=== PATIENT | female | born 1930 | race Caucasian/White ===

== ENCOUNTER → 2016-11-14 | Emergency (ER) | payer MEDICARE, BC ==
[~2016-11-14] MED LIST: ATROPINE SULFATE INJ 1 MG/1 ML VIAL ONE; ATROPINE SULFATE INJ 1 MG/10 ML DISP.SYRIN IV ONE; CALCIUM GLUCONATE 1000 MG/10 ML INJ IV ONE; DEXTROSE 50%-WATER 25 GM/50 ML DISP.SYRIN IV ONE; GLUCAGON,HUMAN RECOMB 1 MG INJ IV PRN; GLUCAGON,HUMAN RECOMB 1 MG INJ ONE; INSULIN REG, HUMAN 100 UNIT/ML 3 ML VIAL (PYX) IV ONE; NORMAL SALINE 500 ML IV PRN
[2016-11-14 20:46] LABS: ABSOLUTE BASOPHILS # (AUTO) 0.1 10^3/uL (0.0-0.2); ABSOLUTE EOSINOPHILS # (AUTO) 0.2 10^3/uL (0.0-0.6); ABSOLUTE LYMPHOCYTES (AUTO) 1.6 10^3/uL (0.5-4.7); ABSOLUTE MONOCYTES (AUTO) 0.7 10^3/uL (0.1-1.4); ABSOLUTE NEUT (AUTO) 7.5 10^3/uL (1.7-8.2); BASOPHILS % (AUTO) 0.6 % (0-2); EOSINOPHILS % (AUTO) 2.2 % (0-6); HEMATOCRIT 30.4 % (36.0-47.0); HEMOGLOBIN 10.2 g/dL (12.0-15.5); HGB HCT DIFFERENCE 0.2; LYMPHOCYTES % (AUTO) 15.7 % (13-45); MEAN CORPUSCULAR HEMOGLOBIN 31.6 pg (27.0-33.4); MEAN CORPUSCULAR HGB CONC 33.4 g/dL (32.0-36.0); MEAN CORPUSCULAR VOLUME 95 fl (80-97); RED BLOOD COUNT 3.21 10^6/uL (3.72-5.28); RED CELL DISTRIBUTION WIDTH 15.3 % (11.5-14.0); SEGMENTED NEUTROPHILS % (AUTO) 74.5 % (42-78); WHITE BLOOD COUNT 10.1 10^3/uL (4.0-10.5)
[2016-11-14 21:02] LABS: ALANINE AMINOTRANSFERASE 34 U/L (9-52); ALBUMIN 3.9 g/dL (3.5-5.0); ALKALINE PHOSPHATASE 227 U/L (38-126); ANION GAP 19 (5-19); ASPARTATE AMINO TRANSFERASE 37 U/L (14-36); BILIRUBIN,DIRECT 0.7 mg/dL (0.0-0.4); BILIRUBIN,TOTAL 0.7 mg/dL (0.2-1.3); BLOOD UREA NITROGEN 104 mg/dL (7-20); CALCIUM 9.3 mg/dL (8.4-10.2); CARBON DIOXIDE 21 mmol/L (22-30); CHLORIDE 95 mmol/L (98-107); CREATINE KINASE 47 U/L (30-135); GLUCOSE 92 mg/dL (75-110)
[2016-11-14 21:08] LABS: CREATININE RESULT 7.21 mg/dL (0.52-1.25)
[2016-11-14 21:11] LABS: POTASSIUM 6.5 mmol/L (3.6-5.0)
[2016-11-14 21:14] LABS: CREATINE KINASE MB 2.2 ng/mL (<4.55); TROPONIN I 0.015 ng/mL
--- NOTE | 2016-11-14 21:25 | EKG REPORT ---
SEVERITY:- ABNORMAL ECG - JUNCTIONAL ESCAPE RHYTHM 31 BPM. NEED TO R/O HYPERKALEMIA. : Confirmed by: Jan Lyons MD 14-Nov-2016 21:24:45
--- NOTE | 2016-11-14 21:54 | ER Document Report ---
ED General - General Chief Complaint: General Weakness Stated Complaint: WEAKNESS Time seen by provider: 21:49 Mode of Arrival: Medic Information source: Patient, Emergency Med Personnel Notes: This is an 86-year-old female with a history of end-stage renal disease ( dialysis Mondays, Wednesdays, Fridays) and hypertension(on carvedilol and nifedipine) who was brought into the emergency room by EMS because of weakness and bradycardia. The patient lives alone and states she felt fine today. She was out earlier driving to [place]. She states that this evening she was sweeping in her kitchen and she felt very weak and dizzy and felt like she was given a faint. She lied down on the couch for a little bit and called EMS when she was profoundly weak. When EMS arrived, the patient had a heart rate in the 30s. On arrival to the emergency room, the patient's heart rate is 31. TRAVEL OUTSIDE OF THE [place] IN LAST 30 DAYS: No - HPI Onset: Just prior to arrival Onset/Duration: Sudden Quality of pain: Burning Severity: Mild Pain Level: 1 Associated symptoms: denies: Chills, Nonproductive cough, Productive cough, Fever, Shortness of breath Exacerbated by: Denies Relieved by: Denies Similar symptoms previously: No Recently seen / treated by doctor: Yes - Related Data Allergies/Adverse Reactions: benazepril [Benazepril] Allergy (Verified 07/25/15 08:19) cephalexin monohydrate [From Keflex] Allergy (Verified 07/25/15 08:19) ciprofloxacin [From Cipro] Allergy (Verified 07/25/15 08:19) ciprofloxacin HCl [From Cipro] Allergy (Verified 07/25/15 08:19) Home Medications: Current Home Medications Carvedilol [Coreg] 12.5 mg PO BID 11/14/16 [History] Losartan Potassium 50 mg PO DAILY MDD daily 11/14/16 [History] Trazodone HCl 100 mg PO QHS 11/14/16 [History] Past Medical History - General Information source: Patient - Social History Smoking Status: Never Smoker Cigarette use (# per day): No Chew tobacco use (# tins/day): No Frequency of alcohol use: None Drug Abuse: None Lives with: Alone Family History: Reviewed & Not Pertinent Patient has suicidal ideation: No Patient has homicidal ideation: No - Past Medical History Cardiac Medical History: Reports: Hx Congestive Heart Failure, Hx Hypertension Pulmonary Medical History: Reports: None EENT Medical History: Reports: None Neurological Medical History: Reports: None Endocrine Medical History: Reports: None Renal/ Medical History: Reports: Hx End Stage Renal Disease Malignancy Medical History: Reports: None GI Medical History: Reports: None Musculoskeltal Medical History: Reports Hx Arthritis Skin Medical History: Reports None Psychiatric Medical History: Reports: None Traumatic Medical History: Reports: None Infectious Medical History: Reports: None Past Surgical History: Reports: Hx Appendectomy, Hx Cholecystectomy, Hx Hysterectomy, Hx Orthopedic Surgery, Hx Urinary Tract Surgery, Hx Vascular Surgery - AV graft of L upper arm - Immunizations Hx Pneumococcal Vaccination: 08/22/14 Review of Systems - Review of Systems Constitutional: denies: Chills, Fever EENT: No symptoms reported Cardiovascular: See HPI Respiratory: denies: Cough, Short of breath, Wheezing Gastrointestinal: No symptoms reported Genitourinary: No symptoms reported Female Genitourinary: No symptoms reported Musculoskeletal: No symptoms reported Skin: No symptoms reported Hematologic/Lymphatic: No symptoms reported Neurological/Psychological: No symptoms reported Physical Exam - Vital signs Vitals: Resp 22 H 11/14/16 20:14 Notes: Physical exam: GENERAL: 86-year-old female, alert and oriented 3, appears very weak. She is bradycardic on monitor at a heart rate of 31. HEAD: Atraumatic, normocephalic. EYES: Pupils equal round and reactive to light, extraocular movements intact, sclera anicteric, conjunctiva are normal. ENT: TMs normal, nares patent, oropharynx clear without exudates. Moist mucous membranes. NECK: Normal range of motion, supple without lymphadenopathy or JVD. LUNGS: Breath sounds clear to auscultation bilaterally and equal. No wheezes rales or rhonchi. HEART: Bradycardia without murmurs, rubs or gallops. ABDOMEN: Soft, normoactive bowel sounds. No tenderness to palpation. No guarding, no rebound. No masses appreciated. EXTREMITIES: Left upper extremity shunt: Positive thrill. No erythema over the graft site. NEUROLOGICAL: Cranial nerves II through XII grossly intact. Normal speech, normal gait. PSYCH: Normal mood, normal affect. SKIN: Warm, Dry, normal turgor, no rashes or lesions noted. Course - Re-evaluation Re-evalutation: 11/14/16 21:53 The patient's initial EKG revealed a junctional escape rhythm with a ventricular rate of 31. IV access was established. Patient was given 0.5 mg of atropine. External pacer pads are in place (not started). IV calcium gluconate 1 g given IV glucagon 1 mg given D50 50 g IV given Regular Insulin 10 units IV given Patient's heart rate is currently 51-55. Plan will be to transfer the patient to [facility] (she has been there before that's where her renal doctors are). We do not have any nephrology consultation or capabilities for dialysis at this time. 11/14/16 23:22 Note: Called into the room because the patient was dropping her heart rate again. She is alert and oriented 3 and doesn't appear to be in any discomfort. Her heart rate at this time is sinus bradycardia in the 40s. 11/15/16 00:16 11/15/16 00:17 - Vital Signs Vital signs: Temp Pulse Resp BP Pulse Ox 97.1 F 12 106/40 L 100 11/14/16 23:29 11/14/16 23:50 11/14/16 23:51 11/14/16 23:51 - Laboratory Result Diagrams: 11/14/16 20:25 11/14/16 20:25 Laboratory results interpreted by me: 11/14/16 11/14/16 20:25 20:25 RBC 3.21 L Hgb 10.2 L Hct 30.4 L RDW 15.3 H Sodium 135.0 L Potassium 6.5 H* Chloride 95 L Carbon Dioxide 21 L BUN 104 H Creatinine 7.21 H Est GFR ( Amer) 7 L Est GFR (Non-Af Amer) 5 L Direct Bilirubin 0.7 H AST 37 H Alkaline Phosphatase 227 H - Diagnostic Test Radiology reviewed: Image reviewed, Reports reviewed - Chest x-ray shows no - EKG Interpretation by Me Rate: Bradycardia - EKG shows bradycardia with a ventricular rate of 31. The complexes are narrow suggesting a junctional escape rhythm. There is no acute ST-T wave changes. Critical Care Note - Critical Care Note Total time excluding time spent on procedures (mins): 90 Discharge - Discharge Clinical Impression: bradycardia, hyperkalemia Condition: Serious Disposition: [facility] Referrals: MARIE OCAMPO MD [Primary Care Provider] - Follow up as needed
[2016-11-15 00:10] VITALS: BP 106/40
[2016-11-15 00:14] LABS: THYROID STIMULATING HORMONE 6.13 uIU/mL (0.47-4.68)
== END | disposition short-term general hospital (02) ==
LOC: ER 19:59
DX: R00.1 Bradycardia, unspecified (principal); E87.5 Hyperkalemia; R53.1 Weakness; I12.0 Hypertensive chronic kidney disease with stage 5 chronic kidney disease or end stage renal disease; N18.6 End stage renal disease; Z99.2 Dependence on renal dialysis; Z79.899 Other long term (current) drug therapy; Z88.8 Allergy status to other drugs, medicaments and biological substances; Z88.1 Allergy status to other antibiotic agents
CPT/HCPCS: 93005; 96376; 99291; 99292; 96374; 96375; 36415; 84439; 82553; 82962; 82550; 84443; 85025; 80053; 84484; 71010; 93010; J0461; J0610; J3490; J1610; A9270; J1815

== ENCOUNTER 2017-09-10 17:58 | Emergency (ER) | payer MEDICARE, BC ==
[2017-09-10] MEDS ORDERED: OXYCODONE-ACETAMINOPHEN 5-325 MG TABLET PO ONE ×2 (20:01→23:48)
--- NOTE | 2017-09-10 20:09 | ER Document Report ---
ED Extremity Problem, Lower - General Mode of Arrival: Wheelchair Information source: Patient, Relative - 2 daughters in law TRAVEL OUTSIDE OF THE [place] IN LAST 30 DAYS: No <FILIPE CASON - Last Filed: 09/10/17 20:54> <CULLEN GALLOWAY - Last Filed: 09/10/17 22:50> - General Chief Complaint: Fall Stated Complaint: ANKLE PAIN Time Seen by Provider: 09/10/17 19:50 Notes: 87-year-old female who lives alone fell yesterday morning trying to use her walker to get to the bathroom. She injured her left ankle and her left knee due to a previous fall since she got home. Somehow they got her to dialysis and had to be transported home from dialysis at [facility]. [facility] at [facility] for pneumonia and was discharged from [facility] after 6 days. She has been falling ever since she got home because of weakness and debilitation. No fever. No vomiting or diarrhea. She is wearing a diaper at this time. Her 2 [id number] are with her and they are trying to find a assisted placement for her. She denies chest pain, shortness of breath, abdominal pain. She gets dialysis Tuesday and Tuesday. (FILIPE CASON) - Related Data Allergies/Adverse Reactions: benazepril [Benazepril] Allergy (Verified 07/25/15 08:19) cephalexin monohydrate [From Keflex] Allergy (Verified 07/25/15 08:19) ciprofloxacin [From Cipro] Allergy (Verified 07/25/15 08:19) ciprofloxacin HCl [From Cipro] Allergy (Verified 07/25/15 08:19) Past Medical History - General Information source: Patient, Relative - [id number] - Social History Smoking Status: Never Smoker Frequency of alcohol use: None Drug Abuse: None Lives with: Alone Family History: Reviewed & Not Pertinent - Past Medical History Cardiac Medical History: Reports: Hx Congestive Heart Failure, Hx Hypertension Renal/ Medical History: Reports: Hx End Stage Renal Disease Musculoskeltal Medical History: Reports Hx Arthritis Past Surgical History: Reports: Hx Appendectomy, Hx Cholecystectomy, Hx Hysterectomy, Hx Orthopedic Surgery, Hx Urinary Tract Surgery, Hx Vascular Surgery - AV graft of L upper arm - Immunizations Hx Pneumococcal Vaccination: 08/22/14 <KAMLAFILIPE - Last Filed: 09/10/17 20:54> Review of Systems - Review of Systems Constitutional: No symptoms reported EENT: No symptoms reported Cardiovascular: No symptoms reported Respiratory: No symptoms reported Gastrointestinal: No symptoms reported Genitourinary: No symptoms reported Female Genitourinary: No symptoms reported Musculoskeletal: See HPI Skin: No symptoms reported Hematologic/Lymphatic: No symptoms reported Neurological/Psychological: No symptoms reported <DERICKLIVANFILIPE - Last Filed: 09/10/17 20:54> Physical Exam - Vital signs Interpretation: Normal - General General appearance: Appears well, Alert - HEENT Head: Normocephalic, Atraumatic Eyes: Normal Conjunctiva: Other - mild yellow mucoid medial canthus discharge both eyes Pupils: PERRL Pharynx: Normal Neck: Supple. No: Lymphadenopathy - Respiratory Respiratory status: No respiratory distress Chest status: Nontender Breath sounds: Normal Chest palpation: Normal - Cardiovascular Rhythm: Regular Heart sounds: Normal auscultation Murmur: No - Abdominal Inspection: Normal Distension: No distension Bowel sounds: Normal Tenderness: Nontender. No: Tender Organomegaly: No organomegaly - Back Back: Normal, Nontender - Extremities General upper extremity: Normal inspection, Nontender, Normal color, Normal ROM , Normal temperature General lower extremity: Normal inspection, Nontender, Normal color, Normal ROM , Normal temperature, Normal weight bearing. No: Cristina's sign Knee: Tender - bruising medial left knee Ankle: Tender - medial and lateral malleolus, Edema, Limited ROM, Unable to bear weight. No: Deformity, Instability - Neurological Neuro grossly intact: Yes Cognition: Normal Orientation: AAOx4 Minda Coma Scale Eye Opening: Spontaneous [place] Coma Scale Verbal: Oriented Minda Coma Scale Motor: Obeys Commands [place] Coma Scale Total: 15 Speech: Normal Motor strength normal: LUE, RUE, LLE, RLE Sensory: Normal - Psychological Associated symptoms: Normal affect, Normal mood - Skin Skin Temperature: Warm Skin Moisture: Dry Skin Color: Normal Skin irregularity: other - skin tear lower right lateral leg <DERICKLIVANFILIPE - Last Filed: 09/10/17 20:54> - Vital signs Vitals: Temp Pulse Resp BP Pulse Ox 97.5 F 100 18 105/60 97 09/10/17 18:14 09/10/17 18:14 01/20/18 18:14 09/10/17 18:14 09/10/17 18:14 Course - Transfer of Care Care transferred to following provider: cullen galloway at the bedside <FILIPE CASON - Last Filed: 09/10/17 20:54> - Laboratory Result Diagrams: 09/10/17 21:57 09/10/17 21:57 <CULLEN GALLOWAY - Last Filed: 09/10/17 22:50> - Re-evaluation Re-evalutation: 09/10/17 22:47 Patient is nontoxic appearing with stable vitals. The patient sustained a distal fibular fracture after falling at home yesterday. She has a normal neurovascular exam. Patient is noted to have some increasing weakness and difficulty getting around at home. She has dialysis Tuesday and has home health comes out Tuesdays and . There is no medical reason to admit the patient at this current time. This was discussed with the family who agrees with the plan. Patient will be placed in a posterior splint. Medical transport will transfer her back to her home. I informed the family they should talk with her home health to see if they can increase her home health to more than Tuesdays and to help the patient while she is at home. She is instructed to follow-up with Orth O at the next available appointment for reevaluation. The patient has tramadol which she can take for pain at home already. Instructed her to follow-up sooner for increasing pain, fever, weakness, numbness, tingling, any further concerns. The patient's emergency department workup and current diagnosis were explained to the patient and or family. Follow-up instructions were provided. Medications if prescribed were discussed. Instructions for when to return to the emergency department including specific worrisome symptoms were discussed with the patient and/or family. (CULLEN GALLOWAY) - Vital Signs Vital signs: Temp Pulse Resp BP Pulse Ox 97.5 F 100 18 105/60 97 09/10/17 18:14 09/10/17 18:14 09/10/17 18:14 09/10/17 18:14 09/10/17 18:14 - Laboratory Laboratory results interpreted by me: 09/10/17 09/10/17 09/10/17 21:35 21:57 21:57 RBC 2.83 L Hgb 9.1 L Hct 28.2 L MCV 100 H RDW 19.4 H Monocytes % 16.6 H Sodium 135.0 L Creatinine 4.22 H Est GFR ( Amer) 12 L Est GFR (Non-Af Amer) 10 L Glucose 115 H Alkaline Phosphatase 146 H Total Protein 6.1 L Albumin 3.4 L Urine Protein 100 H Urine Blood SMALL H Ur Leukocyte Esterase TRACE H Procedures - Immobilization Left leg Pre-Proc Neuro Vasc Exam: Normal Immobilizer type: Posterior ankle Performed by: RN Post-Proc Neuro Vasc Exam: Normal Alignment checked and good: Yes <CULLEN GALLOWAY - Last Filed: 09/10/17 22:50> Discharge <FILIPE CASON - Last Filed: 09/10/17 20:54> <CULLEN GALLOWAY - Last Filed: 09/10/17 22:50> - Discharge Clinical Impression: Weakness Fracture of distal fibula Qualifiers: Encounter type: initial encounter Fracture type: closed Fracture morphology: unspecified fracture morphology Laterality: left Qualified Code(s): S82.832A - Other fracture of upper and lower end of left fibula, initial encounter for closed fracture Condition: Stable Disposition: HOME, SELF-CARE Instructions: Fracture of Distal Fibula ([facility]), Weakness ([facility]) Additional Instructions: Take her tramadol as as needed for pain. Wear splint until follow-up with orthopedics. Rest, ice, elevate her ankle. Follow-up with her family doctor the next available appointment. Discuss the possibility of her home health coming out more frequently for assistance. Follow-up sooner for increasing pain , fever, numbness, tingling, weakness, any further concerns. Referrals: MARIE OCAMPO MD [Primary Care Provider] - Follow up as needed CHELSY EVANS DO [ACTIVE STAFF] - Follow up as needed
--- NOTE | 2017-09-10 21:09 | RADIOLOGY REPORT (SQ) ---
EXAM DESCRIPTION: ANKLE LEFT COMPLETE COMPLETED DATE/TIME: 09/10/2017 8:33 pm REASON FOR STUDY: pain COMPARISON: None. NUMBER OF VIEWS: Three views. TECHNIQUE: AP, lateral, and oblique radiographic images acquired of the left ankle. LIMITATIONS: None. FINDINGS: MINERALIZATION: Osteopenia. BONES: A nondisplaced oblique fracture is seen through the distal fibula. The ankle mortise is maint ained. Postsurgical changes of the great toe proximal phalanx are noted. JOINTS: No effusions. 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 N o soft tissue swelling. No foreign body. OTHER: No other significant finding. IMPRESSION: Nondisplaced oblique fracture through the distal fibula. TECHNICAL DOCUMENTATION: JOB ID: [id number] [employer]- All Rights Reserved
[2017-09-10 21:49] LABS: APPEARANCE,URINE SLIGHTLY-CLOUDY; BILIRUBIN,URINE NEGATIVE (NEGATIVE); COLOR,URINE AMBER; GLUCOSE, URINE NEGATIVE (NEGATIVE); KETONES,URINE NEGATIVE (NEGATIVE); LEUKOCYTE ESTERASE,URINE TRACE (NEGATIVE); NITRITE,URINE NEGATIVE (NEGATIVE); PROTEIN,URINE 100 mg/dL (NEGATIVE); URINE SPECIFIC GRAVITY 1.015; UROBILINOGEN,URINE NEGATIVE mg/dL (<2.0)
--- NOTE | 2017-09-10 21:58 | RADIOLOGY REPORT (SQ) ---
EXAM DESCRIPTION: CHEST SINGLE VIEW COMPLETED DATE/TIME: 09/10/2017 9:20 pm REASON FOR STUDY: injury COMPARISON: 11/14/2016 EXAM PARAMETERS: NUMBER OF VIEWS: One view. TECHNIQUE: Single frontal radiographic view of the chest acquired. RADIATION DOSE: NA LIMITATIONS: None. FINDINGS: LUNGS AND PLEURA: No opacities, masses or pneumothorax. No pleural effusion. MEDIASTINUM AND HILAR STRUCTURES: No masses. Contour normal. HEART AND VASCULAR STRUCTURES: Mild cardiomegaly. Normal vasculature. BONES: No acute findings. HARDWARE: Left axillary vascular stent. Right anterior chest wall dual lead cardiac pacer. OTHER: No other significant finding. IMPRESSION: NO ACUTE RADIOGRAPHIC FINDING IN THE CHEST. TECHNICAL DOCUMENTATION: JOB ID: [id number] [employer]- All Rights Reserved
--- NOTE | 2017-09-10 21:59 | RADIOLOGY REPORT (SQ) ---
EXAM DESCRIPTION: KNEE LEFT 4 VIEW COMPLETED DATE/TIME: 09/10/2017 9:20 pm REASON FOR STUDY: injury COMPARISON: None. NUMBER OF VIEWS: Four views. TECHNIQUE: AP, lateral, and both oblique radiographic images acquired of the left knee. LIMITATIONS: None. FINDINGS: MINERALIZATION: Osteopenia. BONES: Status post total knee arthroplasty without evidence of hardware fracture, perihardware lucenc y, or migration. JOINT: No effusion. SOFT TISSUES: No soft tissue swelling. No radio-opaque foreign body. OTHER: No other significant finding. IMPRESSION: Status post total knee arthroplasty without evidence of hardware complication. No evide nce of acute osseous injury. TECHNICAL DOCUMENTATION: JOB ID: [id number] [employer]- All Rights Reserved
[2017-09-10 22:06] LABS: ABSOLUTE BASOPHILS # (AUTO) 0.1 10^3/uL (0.0-0.2); ABSOLUTE EOSINOPHILS # (AUTO) 0.1 10^3/uL (0.0-0.6); ABSOLUTE LYMPHOCYTES (AUTO) 1.5 10^3/uL (0.5-4.7); ABSOLUTE MONOCYTES (AUTO) 1.3 10^3/uL (0.1-1.4); ABSOLUTE NEUT (AUTO) 4.8 10^3/uL (1.7-8.2); BASOPHILS % (AUTO) 0.8 % (0-2); HEMATOCRIT 28.2 % (36.0-47.0); HEMOGLOBIN 9.1 g/dL (12.0-15.5); LYMPHOCYTES % (AUTO) 19.9 % (13-45); MEAN CORPUSCULAR HEMOGLOBIN 32.1 pg (27.0-33.4); MEAN CORPUSCULAR HGB CONC 32.2 g/dL (32.0-36.0); MEAN CORPUSCULAR VOLUME 100 fl (80-97); MONOCYTES % (AUTO) 16.6 % (3-13); PLATELET COUNT 177 10^3/uL (150-450); RED BLOOD COUNT 2.83 10^6/uL (3.72-5.28); RED CELL DISTRIBUTION WIDTH 19.4 % (11.5-14.0); SEGMENTED NEUTROPHILS % (AUTO) 61.7 % (42-78); TOTAL CELLS COUNTED % (AUTO) 100 %; WHITE BLOOD COUNT 7.8 10^3/uL (4.0-10.5)
[2017-09-10 22:22] LABS: ALANINE AMINOTRANSFERASE 34 U/L (9-52); ALBUMIN 3.4 g/dL (3.5-5.0); ALKALINE PHOSPHATASE 146 U/L (38-126); ANION GAP 9 (5-19); ASPARTATE AMINO TRANSFERASE 22 U/L (14-36); BILIRUBIN,DIRECT 0.4 mg/dL (0.0-0.4); BILIRUBIN,TOTAL 0.6 mg/dL (0.2-1.3); BLOOD UREA NITROGEN 16 mg/dL (7-20); CALCIUM 9.4 mg/dL (8.4-10.2); CARBON DIOXIDE 27 mmol/L (22-30); CHLORIDE 99 mmol/L (98-107); GLUCOSE 115 mg/dL (75-110); MAGNESIUM 1.7 mg/dL (1.6-2.3); POTASSIUM 4.8 mmol/L (3.6-5.0); TOTAL PROTEIN 6.1 g/dL (6.3-8.2)
[2017-09-11 02:57] VITALS: BP 105/66
== END 2017-09-11 02:54 | disposition home or self-care (01) ==
LOC: ER 17:58
PROC: 2W3RX1Z Immobilization of Left Lower Leg using Splint (ICD-10-PCS; principal; 2017-09-10)
DX: S82.832A Other fracture of upper and lower end of left fibula, initial encounter for closed fracture (principal); R53.1 Weakness; W18.30XA Fall on same level, unspecified, initial encounter; Y92.009 Unspecified place in unspecified non-institutional (private) residence as the place of occurrence of the external cause; I11.0 Hypertensive heart disease with heart failure; I50.9 Heart failure, unspecified; I13.11 Hypertensive heart and chronic kidney disease without heart failure, with stage 5 chronic kidney disease, or end stage renal disease; N18.6 End stage renal disease; Z99.2 Dependence on renal dialysis; Z88.3 Allergy status to other anti-infective agents; Z90.710 Acquired absence of both cervix and uterus; Z90.49 Acquired absence of other specified parts of digestive tract
CPT/HCPCS: 99284; 36415; 87086; 83735; 85025; 80053; 81001; 83880; 73610; 71045; 73562; 29515; A9270

== ENCOUNTER 2017-09-14 10:08 | Emergency (ER) | payer MEDICARE, BC ==
--- NOTE | 2017-09-14 12:02 | ER Document Report ---
ED Medical Screen (RME) - General Chief Complaint: Weakness Stated Complaint: WEAKNESS LEG PAIN Time Seen by Provider: 09/14/17 12:01 Notes: Patient is a Tuesday dialysis patient. She recently had pneumonia and was in an rehab facility. She was discharged from the rehab facility and felt weak and had a fall on Tuesday. At that time she was seen here in the emergency department and diagnosed with a broken fibula. Family brings the patient back in today stating that she is very weak and they cannot lift her or help her ambulate. Patient was supposed to dialyze today but did not make her appointment. Family states that the patient's chief contract officer who is in [place], Dr. Recio, told the family to bring the patient here for admission. TRAVEL OUTSIDE OF THE [place] IN LAST 30 DAYS: No - Related Data Allergies/Adverse Reactions: benazepril [Benazepril] Allergy (Verified 09/14/17 10:21) cephalexin monohydrate [From Keflex] Allergy (Verified 09/14/17 10:21) ciprofloxacin [From Cipro] Allergy (Verified 09/14/17 10:21) ciprofloxacin HCl [From Cipro] Allergy (Verified 09/14/17 10:21) Past Medical History - Social History Frequency of alcohol use: None Drug Abuse: None - Past Medical History Cardiac Medical History: Reports: Hx Congestive Heart Failure, Hx Hypertension Renal/ Medical History: Reports: Hx End Stage Renal Disease. Denies: Hx Peritoneal Dialysis Musculoskeltal Medical History: Reports Hx Arthritis Past Surgical History: Reports: Hx Appendectomy, Hx Cardiac Surgery - pacemaker , Hx Cholecystectomy, Hx Hysterectomy, Hx Orthopedic Surgery, Hx Urinary Tract Surgery, Hx Vascular Surgery - AV graft of L upper arm Physical Exam - Vital signs Vitals: Pulse Resp BP Pulse Ox 84 18 120/45 L 100 09/14/17 10:21 09/14/17 10:09/14/17 10:21 09/14/17 10:21 Course - Vital Signs Vital signs: Temp Pulse Resp BP Pulse Ox 84 18 120/45 L 100 09/14/17 10:21 09/14/17 10:21 09/14/17 10:09/14/17 10:21
[2017-09-14 14:14] LABS: ABSOLUTE EOSINOPHILS # (AUTO) 0.1 10^3/uL (0.0-0.6); ABSOLUTE MONOCYTES (AUTO) 0.5 10^3/uL (0.1-1.4); ABSOLUTE NEUT (AUTO) 4.4 10^3/uL (1.7-8.2); BASOPHILS % (AUTO) 0.6 % (0-2); HEMATOCRIT 30.7 % (36.0-47.0); HEMOGLOBIN 9.8 g/dL (12.0-15.5); LYMPHOCYTES % (AUTO) 17.1 % (13-45); MEAN CORPUSCULAR HEMOGLOBIN 31.3 pg (27.0-33.4); MEAN CORPUSCULAR VOLUME 98 fl (80-97); MONOCYTES % (AUTO) 7.7 % (3-13); PLATELET COUNT 206 10^3/uL (150-450); RED BLOOD COUNT 3.14 10^6/uL (3.72-5.28); RED CELL DISTRIBUTION WIDTH 19.2 % (11.5-14.0); SEGMENTED NEUTROPHILS % (AUTO) 72.6 % (42-78); TOTAL CELLS COUNTED % (AUTO) 100 %; WHITE BLOOD COUNT 6.1 10^3/uL (4.0-10.5)
--- NOTE | 2017-09-14 14:31 | ER Document Report ---
ED General - General Chief Complaint: Weakness Stated Complaint: WEAKNESS LEG PAIN Time Seen by Provider: 09/14/17 12:01 Notes: 87-year-old female patient emergency department at request of family members for excessive weakness. Missed dialysis today. Was sent here by primary care doctor for possible admission and dialysis. Apparently patient was sick prior to with pneumonia. Was discharged to a senior living facility. Got weak and fell and broke her ankle. Was admitted to the hospital. Was discharged back home. Family member state that she is too weak to make dialysis. Family doctor stated to take her to the ER where she needed to be admitted to the hospital so then she can be placed in a nursing facility. Patient denies any pain at this time other than her left ankle. Feels weak. Denies any fever, chills, sweats. Apparently there is one of the family member at home with influenza on Tamiflu. She has had her flu shot this year. [employer] voice dictation system was used in the transcribing of this medical document. There may be contextual errors in the photographic process screen maker which are not actual representations of the patient's history of present illness, physical exam or medical treatment and decision making plans. TRAVEL OUTSIDE OF THE [place] IN LAST 30 DAYS: No - Related Data Allergies/Adverse Reactions: benazepril [Benazepril] Allergy (Verified 09/14/17 10:21) cephalexin monohydrate [From Keflex] Allergy (Verified 09/14/17 10:21) ciprofloxacin [From Cipro] Allergy (Verified 09/14/17 10:21) ciprofloxacin HCl [From Cipro] Allergy (Verified 09/14/17 10:21) Past Medical History - General Information source: Patient, Relative - Social History Smoking Status: Never Smoker Cigarette use (# per day): No Frequency of alcohol use: None Drug Abuse: None Lives with: Family Family History: Reviewed & Not Pertinent Patient has suicidal ideation: No Patient has homicidal ideation: No - Past Medical History Cardiac Medical History: Reports: Hx Congestive Heart Failure, Hx Hypertension Renal/ Medical History: Reports: Hx End Stage Renal Disease. Denies: Hx Peritoneal Dialysis Musculoskeltal Medical History: Reports Hx Arthritis Past Surgical History: Reports: Hx Appendectomy, Hx Cardiac Surgery - pacemaker , Hx Cholecystectomy, Hx Hysterectomy, Hx Orthopedic Surgery, Hx Urinary Tract Surgery, Hx Vascular Surgery - AV graft of L upper arm - Immunizations Hx Pneumococcal Vaccination: 08/22/14 Review of Systems - Review of Systems Constitutional: Malaise, Weakness. denies: Chills, Diaphoresis, Fever EENT: denies: Blurred vision, Double vision, Throat pain, Difficulty swallowing Cardiovascular: Lightheaded, Edema. denies: Palpitations, Heart racing, Orthopnea, Dyspnea, Syncope, Dizziness Gastrointestinal: denies: Abdominal pain, Diarrhea, Nausea, Vomiting Genitourinary: denies: Burning, Dysuria, Discharge, Flank pain Musculoskeletal: Ankle swelling - Left ankle pain status post fracture, Other. denies: Back pain, Joint pain, Muscle pain Hematologic/Lymphatic: denies: Anemia, Blood clots, Easy bleeding, Easy bruising Neurological/Psychological: denies: Confusion, Dementia, Depression, Anxiety Physical Exam - Vital signs Vitals: Pulse Resp BP Pulse Ox 84 18 120/45 L 100 09/14/17 10:21 09/14/17 10:21 09/14/17 10:21 09/14/17 10:21 Interpretation: Normal - General General appearance: Appears well, Alert - HEENT Head: Normocephalic, Atraumatic Eyes: Normal Pupils: PERRL - Respiratory Respiratory status: No respiratory distress Chest status: Nontender Breath sounds: Normal Chest palpation: Normal - Cardiovascular Rhythm: Regular Heart sounds: Normal auscultation Murmur: No - Abdominal Inspection: Normal Distension: No distension Bowel sounds: Normal Tenderness: Nontender Organomegaly: No organomegaly - Back Back: Normal, Nontender - Extremities General upper extremity: Normal inspection, Nontender, Normal color, Normal ROM , Normal temperature General lower extremity: Normal inspection, Nontender, Edema, Normal color, Normal ROM, Normal temperature, Normal weight bearing, Other - There is bilateral lower extremity 3+ pitting edema with bruising and swelling noted to the left ankle with tenderness to palpation of the lateral malleolus. There is a small abrasion on the distal tib-fib area proximal to the right ankle but no signs of cellulitis.. No: Cristina's sign - Neurological Neuro grossly intact: Yes Cognition: Normal Orientation: AAOx4 Byron Coma Scale Eye Opening: Spontaneous Minda Coma Scale Verbal: Oriented Byron Coma Scale Motor: Obeys Commands Minda Coma Scale Total: 15 Speech: Normal Motor strength normal: LUE, RUE, LLE, RLE Sensory: Normal - Psychological Associated symptoms: Normal affect, Normal mood - Skin Skin Temperature: Warm Skin Moisture: Dry Skin Color: Normal Course - Re-evaluation Re-evalutation: 09/14/17 14:59 At this time patient has a potassium of 5.1 which is not extremely high. There are no beds available for dialysis at this facility. Patient's education finance processor is not at this hospital. At this time I can entertain transferring the patient however it may be quicker and better if the patient gets the long-term placement done as an outpatient with the help from primary care doctor. 09/14/17 16:39 Laboratory 09/14/17 09/14/17 09/14/17 13:59 13:59 13:59 WBC 6.1 RBC 3.14 L Hgb 9.8 L Hct 30.7 L MCV 98 H MCH 31.3 MCHC 32.0 RDW 19.2 H Plt Count 206 Seg Neutrophils % 72.6 Lymphocytes % 17.1 Monocytes % 7.7 Eosinophils % 2.0 Basophils % 0.6 Absolute Neutrophils 4.4 Absolute Lymphocytes 1.0 Absolute Monocytes 0.5 Absolute Eosinophils 0.1 Absolute Basophils 0.0 Sodium 136.9 L Potassium 5.1 H Chloride 98 Carbon Dioxide 30 Anion Gap 9 BUN 24 H Creatinine 4.82 H Est GFR ( Amer) 10 L Est GFR (Non-Af Amer) 9 L Glucose 92 Calcium 9.9 Total Bilirubin 0.5 Direct Bilirubin 0.5 H Neonat Total Bilirubin Not Reportable Neonat Direct Bilirubin Not Reportable Neonat Indirect Bili Not Reportable AST 32 ALT 49 Alkaline Phosphatase 169 H Troponin I 0.017 Total Protein 6.4 Albumin 3.6 Urine Color Urine Appearance Urine pH Ur Specific Halsey Urine Protein Urine Glucose (UA) Urine Ketones Urine Blood Urine Nitrite Urine Bilirubin Urine Urobilinogen Ur Leukocyte Esterase Urine WBC (Auto) Urine RBC (Auto) U Hyaline Cast (Auto) Urine Bacteria (Auto) Squamous Epi Cells Auto Urine Ascorbic Acid 09/14/17 14:43 WBC RBC Hgb Hct MCV MCH MCHC RDW Plt Count Seg Neutrophils % Lymphocytes % Monocytes % Eosinophils % Basophils % Absolute Neutrophils Absolute Lymphocytes Absolute Monocytes Absolute Eosinophils Absolute Basophils Sodium Potassium Chloride Carbon Dioxide Anion Gap BUN Creatinine Est GFR ( Amer) Est GFR (Non-Af Amer) Glucose Calcium Total Bilirubin Direct Bilirubin Neonat Total Bilirubin Neonat Direct Bilirubin Neonat Indirect Bili AST ALT Alkaline Phosphatase Troponin I Total Protein Albumin Urine Color YELLOW Urine Appearance SLIGHTLY-CLOUDY Urine pH 5.0 Ur Specific Halsey 1.016 Urine Protein 100 H Urine Glucose (UA) NEGATIVE Urine Ketones NEGATIVE Urine Blood NEGATIVE Urine Nitrite NEGATIVE Urine Bilirubin NEGATIVE Urine Urobilinogen NEGATIVE Ur Leukocyte Esterase NEGATIVE Urine WBC (Auto) 1 Urine RBC (Auto) 1 U Hyaline Cast (Auto) 1 Urine Bacteria (Auto) TRACE Squamous Epi Cells Auto <1 Urine Ascorbic Acid NEGATIVE Chest X-Ray 09/14/17 14:30 IMPRESSION: Borderline cardiomegaly. No bed available at this facility for dialysis. Patient's education finance processor is in [place]. Will attempt to transfer there at this time. Of note, patient is hypotensive. Giving an IV fluid bolus at this time due to the fact that her blood pressures 88/60. 09/14/17 17:54 No bed available here. Patient accepted by Dr. Benjamin at [facility] in [place]. Awaiting transport at this time. - Vital Signs Vital signs: Temp Pulse Resp BP Pulse Ox 84 13 110/46 L 97 09/14/17 10:21 09/14/17 15:01 09/14/17 15:01 09/14/17 15:00 - Laboratory Result Diagrams: 09/14/17 13:59 09/14/17 13:59 Laboratory results interpreted by me: 09/14/17 09/14/17 09/14/17 13:59 13:59 14:43 RBC 3.14 L Hgb 9.8 L Hct 30.7 L MCV 98 H RDW 19.2 H Sodium 136.9 L Potassium 5.1 H BUN 24 H Creatinine 4.82 H Est GFR ( Amer) 10 L Est GFR (Non-Af Amer) 9 L Direct Bilirubin 0.5 H Alkaline Phosphatase 169 H Urine Protein 100 H - EKG Interpretation by Ne EKG shows normal: Intervals, QRS Complexes, ST-T Waves - Paced ventricular rhythm Discharge - Discharge Clinical Impression: Hypotension Qualifiers: Hypotension type: unspecified hypotension type Qualified Code(s): I95.9 - Hypotension, unspecified Renal failure (ARF), acute on chronic Qualifiers: Acute renal failure type: unspecified Chronic kidney disease stage: on chronic dialysis Qualified Code(s): N17.9 - Acute kidney failure, unspecified; N18.9 - Chronic kidney disease, unspecified; N18.9 - Chronic kidney disease, unspecified ; Z99.2 - Dependence on renal dialysis; Z99.2 - Dependence on renal dialysis; Z99.2 - Dependence on renal dialysis; Z99.2 - Dependence on renal dialysis Disposition: [facility] Admitting Provider: Cassidy Referrals: MARIE OCAMPO MD [Primary Care Provider] - Follow up as needed
[2017-09-14 14:33] LABS: ALANINE AMINOTRANSFERASE 49 U/L (9-52); ALBUMIN 3.6 g/dL (3.5-5.0); ALKALINE PHOSPHATASE 169 U/L (38-126); ANION GAP 9 (5-19); ASPARTATE AMINO TRANSFERASE 32 U/L (14-36); BILIRUBIN,DIRECT 0.5 mg/dL (0.0-0.4); BILIRUBIN,TOTAL 0.5 mg/dL (0.2-1.3); BLOOD UREA NITROGEN 24 mg/dL (7-20); CALCIUM 9.9 mg/dL (8.4-10.2); CARBON DIOXIDE 30 mmol/L (22-30); CHLORIDE 98 mmol/L (98-107); GLUCOSE 92 mg/dL (75-110); POTASSIUM 5.1 mmol/L (3.6-5.0); SODIUM 136.9 mmol/L (137-145); TOTAL PROTEIN 6.4 g/dL (6.3-8.2)
[2017-09-14 14:57] LABS: APPEARANCE,URINE SLIGHTLY-CLOUDY; BILIRUBIN,URINE NEGATIVE (NEGATIVE); GLUCOSE, URINE NEGATIVE (NEGATIVE); KETONES,URINE NEGATIVE (NEGATIVE); LEUKOCYTE ESTERASE,URINE NEGATIVE (NEGATIVE); NITRITE,URINE NEGATIVE (NEGATIVE); PROTEIN,URINE 100 mg/dL (NEGATIVE); URINE SPECIFIC GRAVITY 1.016; UROBILINOGEN,URINE NEGATIVE mg/dL (<2.0)
[2017-09-14 14:58] LABS: COLOR,URINE YELLOW
--- NOTE | 2017-09-14 15:44 | RADIOLOGY REPORT (SQ) ---
EXAM DESCRIPTION: CHEST SINGLE VIEW COMPLETED DATE/TIME: 09/14/2017 3:16 pm REASON FOR STUDY: weakness, recent PNA COMPARISON: 09/10/2017 EXAM PARAMETERS: NUMBER OF VIEWS: One view. TECHNIQUE: Single frontal radiographic view of the chest acquired. RADIATION DOSE: NA LIMITATIONS: None. FINDINGS: LUNGS AND PLEURA: No infiltrate, masses or pneumothorax. No pleural effusion. MEDIASTINUM AND HILAR STRUCTURES: No masses. Contour normal. HEART AND VASCULAR STRUCTURES: The heart is unchanged in size with atherosclerotic uncoiling thoracic aorta. Subclavian vascular stent on the left. BONES: No acute findings. HARDWARE: Pacer leads in place. OTHER: No other significant finding. IMPRESSION: Borderline cardiomegaly. TECHNICAL DOCUMENTATION: JOB ID: [id number] [id number] [employer]- All Rights Reserved
[2017-09-14] MEDS ORDERED: ACETAMINOPHEN 325 MG TABLET PO ONE (16:24)
[2017-09-14] MEDS ORDERED: NORMAL SALINE 500 ML IV ONE (16:34)
[2017-09-14] MEDS ORDERED: TRAMADOL HCL 50 MG TABLET PO ONE (17:52)
[2017-09-14 20:12] VITALS: BP 93/45
--- NOTE | 2017-09-15 11:58 | EKG REPORT ---
SEVERITY:- ABNORMAL ECG - DUAL-PACEMAKER W/ A-NONCAPT DUE TO AFIB/FLUT NONSPECIFIC T ABNORMALITIES, DIFFUSE LEADS A FIB : Confirmed by: Rodney Hartley 15-Sep-2017 11:58:12
== END 2017-09-14 20:30 | disposition short-term general hospital (02) ==
LOC: ER 10:08
DX: I12.0 Hypertensive chronic kidney disease with stage 5 chronic kidney disease or end stage renal disease (principal); N18.6 End stage renal disease; N17.9 Acute kidney failure, unspecified; Z99.2 Dependence on renal dialysis; Z91.15 Patient's noncompliance with renal dialysis; I95.9 Hypotension, unspecified; R53.1 Weakness; R53.81 Other malaise; R42 Dizziness and giddiness; Z87.01 Personal history of pneumonia (recurrent); Z20.828 Contact with and (suspected) exposure to other viral communicable diseases; Z88.8 Allergy status to other drugs, medicaments and biological substances; Z88.1 Allergy status to other antibiotic agents
CPT/HCPCS: 93005; 99285; 96360; 51701; 36415; 87086; 85025; 87088; 80053; 81001; 84484; 71045; 93010; A9270 ×2; J7040

== ENCOUNTER 2017-10-13 23:42 | Emergency (ER) | payer MEDICARE, BC ==
--- NOTE | 2017-10-14 00:12 | ER Document Report ---
ED General - General Stated Complaint: POSSIBLE ACCIDENTAL OVERDOSE Time Seen by Provider: 10/13/17 23:53 Notes: Patient is an 87-year-old female that comes by EMS from [facility] for possible overdose. EMS reports that they were both found "all over the floor and patient's room, they state that patient stated she only took 0.5 mg of Ativan to "help her rest", per medics state and there appeared to be old trazodone and diazepam pills over the floor which patient must have brought with her when she was admitted 1 week ago. Patient states that she was had dialysis yesterday, she states her legs are restless and she cannot get comfortable, states she was just trying to get comfortable, she denies suicidal or homicidal ideations. She is oriented to person, events, self. Past medical history of restless legs, oxygen dependency, end-stage renal disease on dialysis , hypertension, and chronic pain. TRAVEL OUTSIDE OF THE [place] IN LAST 30 DAYS: No - Related Data Allergies/Adverse Reactions: benazepril [Benazepril] Allergy (Verified 09/14/17 10:21) cephalexin monohydrate [From Keflex] Allergy (Verified 09/14/17 10:21) ciprofloxacin [From Cipro] Allergy (Verified 09/14/17 10:21) ciprofloxacin HCl [From Cipro] Allergy (Verified 09/14/17 10:21) Past Medical History - General Information source: Patient - Social History Smoking Status: Never Smoker Frequency of alcohol use: None Drug Abuse: None Lives with: [facility] Family History: Reviewed & Not Pertinent - Past Medical History Cardiac Medical History: Reports: Hx Congestive Heart Failure, Hx Hypertension Renal/ Medical History: Reports: Hx End Stage Renal Disease. Denies: Hx Peritoneal Dialysis Musculoskeltal Medical History: Reports Hx Arthritis Past Surgical History: Reports: Hx Appendectomy, Hx Cardiac Surgery - pacemaker , Hx Cholecystectomy, Hx Hysterectomy, Hx Orthopedic Surgery, Hx Urinary Tract Surgery, Hx Vascular Surgery - AV graft of L upper arm - Immunizations Hx Pneumococcal Vaccination: 08/22/14 Review of Systems - Review of Systems Constitutional: No symptoms reported EENT: No symptoms reported Cardiovascular: No symptoms reported Respiratory: No symptoms reported Gastrointestinal: No symptoms reported Genitourinary: No symptoms reported Female Genitourinary: No symptoms reported Musculoskeletal: See HPI Skin: No symptoms reported Hematologic/Lymphatic: No symptoms reported Neurological/Psychological: See HPI Physical Exam - Vital signs Vitals: Temp Pulse Resp BP Pulse Ox 97.9 F 121 H 20 196/76 H 97 10/14/17 00:05 10/14/17 00:05 10/14/17 00:05 10/14/17 00:05 10/14/17 00:05 Interpretation: Normal - General General appearance: Appears well, Alert, Anxious In distress: None - Patient will not stop moving her legs - HEENT Head: Normocephalic, Atraumatic Eyes: Normal Pupils: PERRL - Respiratory Respiratory status: No respiratory distress Chest status: Nontender Breath sounds: Normal Chest palpation: Normal - Cardiovascular Rhythm: Regular Heart sounds: Normal auscultation Murmur: No - Abdominal Inspection: Normal Distension: No distension Bowel sounds: Normal Tenderness: Nontender Organomegaly: No organomegaly - Back Back: Normal, Nontender - Extremities General upper extremity: Normal inspection, Nontender, Normal color, Normal ROM , Normal temperature General lower extremity: Normal inspection, Nontender, Normal color, Normal ROM , Normal temperature, Normal weight bearing. No: Cristina's sign - Neurological Neuro grossly intact: Yes Cognition: Normal Orientation: AAOx4 Catlin Coma Scale Eye Opening: Spontaneous Minda Coma Scale Verbal: Oriented [place]lin Coma Scale Motor: Obeys Commands Minda Coma Scale Total: 15 Speech: Normal Cranial nerves: Normal Cerebellar coordination: Normal Motor strength normal: LUE, RUE, LLE, RLE Additional motor exam normals: Equal bmx rider Sensory: Normal - Psychological Associated symptoms: Anxious - Anxious but cooperative, alert, and responsive - Skin Skin Temperature: Warm Skin Moisture: Dry Skin Color: Normal Course - Re-evaluation Re-evalutation: Patient is slightly uncomfortable, cannot stop moving her legs, slightly tachycardic. Mild tachypnea, appears to be from anxiety. Mildly hypertensive, no hypoxia. No fever. Patient is cooperative, alert, agitated by her legs but denies suicidal or homicidal ideations. She can give me a detailed account of tonight. No indication of abuse trying to hurt herself. CBC unremarkable, chemistry shows surprisingly good renal functioning for a dialysis patient with no electrolyte concerns, EKG not significantly changed from prior showing paced rhythm with tachycardia, troponin is not positive. Chest x-ray unremarkable. Patient does make urine, this was checked, does indicate a UTI. Culture was placed. Drug screen is negative. No other concerning a normality is noted. Patient given 0.5 mg of Ativan for anxiety, after this she states her legs feel much better. Patient asking to go home. Discussed workup, given antibiotic dose, discussed discharge back. After patient heard she was going back to the nursing facility she became much more calm and relaxed, her vital signs normalized. I discussed patient with Dr. Garcia. Patient will be treated with antibiotics, given recommendations, given return precautions. Patient states understanding and agreement. - Vital Signs Vital signs: Temp Pulse Resp BP Pulse Ox 97.9 F 121 H 19 120/84 100 10/14/17 04:16 10/14/17 00:05 10/14/17 04:16 10/14/17 04:16 10/14/17 04:16 - Laboratory Result Diagrams: 10/14/17 00:54 10/14/17 00:54 Laboratory results interpreted by me: 10/14/17 10/14/17 10/14/17 00:45 00:54 00:54 RBC 3.48 L Hgb 10.2 L Hct 32.6 L MCHC 31.2 L RDW 19.1 H Creatinine 2.24 H Est GFR ( Amer) 25 L Est GFR (Non-Af Amer) 21 L Direct Bilirubin 0.6 H Alkaline Phosphatase 153 H Total Protein 5.9 L Albumin 3.0 L Urine Protein 100 H Urine Blood MODERATE H Ur Leukocyte Esterase LARGE H Salicylates < 1.0 L Acetaminophen < 10 L Discharge - Discharge Clinical Impression: Restless legs, Anxiety Urinary tract infection Qualifiers: Urinary tract infection type: site unspecified Hematuria presence: without hematuria Qualified Code(s): N39.0 - Urinary tract infection, site not specified Condition: Stable Disposition: HOME, SELF-CARE Additional Instructions: Your workup tonight did not show any concerning abnormalities except for a urinary tract infection. You have been given initial antibiotics for this. We have a culture running in the lab, take the Augmentin antibiotics as prescribed. Follow-up with your provider for additional evaluation of restless legs and difficulty sleeping. Only take medications prescribed to you. Return for any concerning symptoms including fever, vomiting, abdominal pain, or any other concerning symptoms. Prescriptions: Amox Tr/Potassium Clavulanate [Augmentin 875-125 Tablet] 1 tab PO BID 7 Days tablet
[2017-10-14 01:09] LABS: ABSOLUTE LYMPHOCYTES (AUTO) 0.9 10^3/uL (0.5-4.7); ABSOLUTE MONOCYTES (AUTO) 0.5 10^3/uL (0.1-1.4); ABSOLUTE NEUT (AUTO) 4.9 10^3/uL (1.7-8.2); BASOPHILS % (AUTO) 0.5 % (0-2); EOSINOPHILS % (AUTO) 0.6 % (0-6); HEMATOCRIT 32.6 % (36.0-47.0); HEMOGLOBIN 10.2 g/dL (12.0-15.5); MEAN CORPUSCULAR HEMOGLOBIN 29.2 pg (27.0-33.4); MEAN CORPUSCULAR HGB CONC 31.2 g/dL (32.0-36.0); MONOCYTES % (AUTO) 8.4 % (3-13); PLATELET COUNT 228 10^3/uL (150-450); RED BLOOD COUNT 3.48 10^6/uL (3.72-5.28); RED CELL DISTRIBUTION WIDTH 19.1 % (11.5-14.0); SEGMENTED NEUTROPHILS % (AUTO) 76.5 % (42-78); TOTAL CELLS COUNTED % (AUTO) 100 %; WHITE BLOOD COUNT 6.5 10^3/uL (4.0-10.5)
--- NOTE | 2017-10-14 01:10 | RADIOLOGY REPORT (SQ) ---
EXAM DESCRIPTION: CHEST SINGLE VIEW CLINICAL HISTORY: tachycardia, shortness of breath COMPARISON: 09/14/2017 FINDINGS: Single frontal view of the chest. Right-sided dual-lead pacemaker. Atherosclerotic calcification aortic arch. Cardiomegaly No consolidation, pneumothorax, or pleural effusion. No displaced rib fractures identified. Upper abdominal soft tissues are unremarkable. Vascular stents in the left axilla. IMPRESSION: 1. No acute pulmonary process identified. 2. Cardiomegaly.
[2017-10-14 01:14] LABS: MEAN CORPUSCULAR VOLUME 94 fl (80-97)
[2017-10-14 01:17] LABS: ALANINE AMINOTRANSFERASE 29 U/L (9-52); ALKALINE PHOSPHATASE 153 U/L (38-126); ANION GAP 11 (5-19); ASPARTATE AMINO TRANSFERASE 17 U/L (14-36); BILIRUBIN,DIRECT 0.6 mg/dL (0.0-0.4); BILIRUBIN,TOTAL 0.6 mg/dL (0.2-1.3); BLOOD UREA NITROGEN 11 mg/dL (7-20); CARBON DIOXIDE 27 mmol/L (22-30); CHLORIDE 101 mmol/L (98-107); GLUCOSE 97 mg/dL (75-110); SODIUM 138.7 mmol/L (137-145); TOTAL PROTEIN 5.9 g/dL (6.3-8.2)
[2017-10-14 01:23] LABS: ACETAMINOPHEN < 10 ug/mL (10-30); ALCOHOL < 10 mg/dL (NONE DETECTED); SALICYLATE < 1.0 mg/dL (2.0-20.0)
[2017-10-14 01:53] LABS: APPEARANCE,URINE SLIGHTLY-CLOUDY; BILIRUBIN,URINE NEGATIVE (NEGATIVE); COLOR,URINE AMBER; GLUCOSE, URINE NEGATIVE (NEGATIVE); KETONES,URINE NEGATIVE (NEGATIVE); LEUKOCYTE ESTERASE,URINE LARGE (NEGATIVE); NITRITE,URINE NEGATIVE (NEGATIVE); PROTEIN,URINE 100 mg/dL (NEGATIVE); URINE SPECIFIC GRAVITY 1.018; UROBILINOGEN,URINE NEGATIVE mg/dL (<2.0)
[2017-10-14 02:03] LABS: URINE AMPHETAMINES SCREEN NEGATIVE; URINE BARBITURATES SCREEN NEGATIVE; URINE BENZODIAZEPINES SCREEN NEGATIVE; URINE COCAINE SCREEN NEGATIVE; URINE MARIJUANA (THC) SCREEN NEGATIVE; URINE METHADONE SCREEN NEGATIVE; URINE PHENCYCLIDINE SCREEN NEGATIVE
[2017-10-14] MEDS ORDERED: PIPERACILLIN/TAZOBACTAM 3.375 GM VIAL IV ONE (02:06)
[2017-10-14] MEDS ORDERED: LORAZEPAM INJ 2 MG/1 ML VIAL IM ONE (02:06)
[2017-10-14] MEDS ORDERED: LORAZEPAM INJ 2 MG/1 ML VIAL IV ONE (02:26)
[2017-10-14 04:21] VITALS: BP 120/84
--- NOTE | 2017-10-14 08:02 | EKG REPORT ---
SEVERITY:- ABNORMAL ECG - VENTRICULAR-PACED COMPLEXES , BASELINE IS ATRIAL FIB. NONSPECIFIC REPOL ABNORMALITY, DIFFUSE LEADS : Confirmed by: Jan Lyons MD 14-Oct-2017 08:02:06
== END 2017-10-14 04:22 | disposition home or self-care (01) ==
LOC: ER 23:42
DX: G25.81 Restless legs syndrome (principal); F41.9 Anxiety disorder, unspecified; N39.0 Urinary tract infection, site not specified; I13.2 Hypertensive heart and chronic kidney disease with heart failure and with stage 5 chronic kidney disease, or end stage renal disease; N18.6 End stage renal disease; Z99.2 Dependence on renal dialysis; I50.9 Heart failure, unspecified; Z95.0 Presence of cardiac pacemaker; Z88.3 Allergy status to other anti-infective agents
CPT/HCPCS: 93005; 99285; 96375; 96365; 36415; 87086; 80307 ×4; 85025; 80053; 81001; 84484; 71045; 93010; J2060; J2543

== ENCOUNTER 2017-10-24 10:32 | Emergency (ER) | payer MEDICARE, BC ==
[2017-10-24] MEDS ORDERED: FENTANYL CITRATE INJ/PF 100 MCG/2 ML AMPUL ONE (10:38)
--- NOTE | 2017-10-24 10:54 | ER Document Report ---
ED General - General Chief Complaint: Dialysis Shunt Problem Stated Complaint: SHUNT ISSUES Time Seen by Provider: 10/24/17 10:53 Mode of Arrival: Medic Information source: Patient, Emergency Med Personnel Notes: 87-year-old female history of dialysis who had dialysis on Tuesday presents with complaints of bleeding from AV shunt on the left upper extremity. Patient was playing with the bandaging today when the bleeding started. EMS notes significant bleeding TRAVEL OUTSIDE OF THE [place] IN LAST 30 DAYS: No - HPI Onset: Just prior to arrival Onset/Duration: Sudden Quality of pain: No pain Severity: Severe Pain Level: Denies Associated symptoms: Other Exacerbated by: Denies Relieved by: Denies Similar symptoms previously: No Recently seen / treated by doctor: No - Related Data Allergies/Adverse Reactions: benazepril [Benazepril] Allergy (Verified 09/14/17 10:21) cephalexin monohydrate [From Keflex] Allergy (Verified 09/14/17 10:21) ciprofloxacin [From Cipro] Allergy (Verified 09/14/17 10:21) ciprofloxacin HCl [From Cipro] Allergy (Verified 09/14/17 10:21) Past Medical History - Social History Smoking Status: Never Smoker Cigarette use (# per day): No Chew tobacco use (# tins/day): No Smoking Education Provided: No Family History: Reviewed & Not Pertinent - Past Medical History Cardiac Medical History: Reports: Hx Congestive Heart Failure, Hx Hypertension Renal/ Medical History: Reports: Hx End Stage Renal Disease. Denies: Hx Peritoneal Dialysis Musculoskeltal Medical History: Reports Hx Arthritis Past Surgical History: Reports: Hx Appendectomy, Hx Cardiac Surgery - pacemaker , Hx Cholecystectomy, Hx Hysterectomy, Hx Orthopedic Surgery, Hx Urinary Tract Surgery, Hx Vascular Surgery - AV graft of L upper arm - Immunizations Hx Pneumococcal Vaccination: 08/22/14 Review of Systems - Review of Systems Notes: REVIEW OF SYSTEMS: CONSTITUTIONAL : Denies fever, chills, or sweats. Denies recent illness. EENT: Denies eye, ear, throat, or mouth pain or symptoms. Denies nasal or sinus congestion or discharge. Denies throat, tongue, or mouth swelling or difficulty swallowing. CARDIOVASCULAR: Denies chest pain. Denies palpitations or racing or irregular heart beat. Denies ankle edema. RESPIRATORY: Denies cough, cold, or chest congestion. Denies shortness of breath, difficulty breathing, or wheezing. GASTROINTESTINAL: Denies abdominal pain or distention. Denies nausea, vomiting , or diarrhea. Denies blood in vomitus, stools, or per rectum. Denies black, tarry stools. Denies constipation. GENITOURINARY: Denies difficulty urinating, painful urination, burning, frequency, blood in urine, or discharge. FEMALE GENITOURINARY: Denies vaginal bleeding, heavy or abnormal periods, irregular periods. Denies vaginal discharge or odor. MUSCULOSKELETAL: Denies back or neck pain or stiffness. Denies joint pain or swelling. SKIN: Admits to bleeding HEMATOLOGIC : Denies easy bruising or bleeding. LYMPHATIC: Denies swollen, enlarged glands. NEUROLOGICAL: Denies confusion or altered mental status. Denies passing out or loss of consciousness. Denies dizziness or lightheadedness. Denies headache. Denies weakness or paralysis or loss of use of either side. Denies problems with gait or speech. Denies sensory loss, numbness, or tingling. Denies seizures. PSYCHIATRIC: Denies anxiety or stress. Denies depression, suicidal ideation, or homicidal ideation. ALL OTHER SYSTEMS REVIEWED AND NEGATIVE. PHYSICAL EXAMINATION: GENERAL: Well-appearing, well-nourished and in no acute distress. HEAD: Atraumatic, normocephalic. EYES: Pupils equal round and reactive to light, extraocular movements intact, conjunctiva are normal. ENT: Nares patent, oropharynx clear without exudates. Moist mucous membranes. NECK: Normal range of motion, supple without lymphadenopathy LUNGS: Breath sounds clear to auscultation bilaterally and equal. No wheezes rales or rhonchi. HEART: Regular rate and rhythm without murmurs ABDOMEN: Soft, nontender, nondistended abdomen. No guarding, no rebound. No masses appreciated. Female : deferred Musculoskeletal: Normal range of motion, no pitting or edema. No cyanosis. NEUROLOGICAL: Cranial nerves grossly intact. Normal speech, normal gait. Normal sensory, motor exams PSYCH: Normal mood, normal affect. SKIN: Left upper extremity AV shunt significantly hemorrhaging thrill noted Dictation was performed using [employer] voice recognition software Physical Exam - Vital signs Vitals: Resp BP Pulse Ox 15 139/58 H 98 10/24/17 10:48 10/24/17 10:48 10/24/17 10:48 Course - Re-evaluation Re-evalutation: 10/24/17 10:53 Patient was immediately seen as they are running by on the stretcher, I walked into the room noted that there was an AV fistula bleed which was very significant, quick clot was placed a very tight tourniquet was placed of the left upper extremity, after the bleeding was slowed down I reevaluated with the surgeon who noted that there was a small open site where the bleeding was coming from, a figure 8 stitch was placed by the surgeon and the bleeding was stopped, patient will be watched 10/24/17 14:54 Patient demanded she be discharged, bleeding has resolved, I have no suspicion for any life-threatening issues at this time however this could definitely open up and have worsening bleeding After performing a Medical Screening Examination, I estimate there is LOW risk for OPEN FRACTURE, COMPARTMENT SYNDROME, TENDON RUPTURE, ACUTE NEUROVASCULAR INJURY, or RETAINED FOREIGN BODY, thus I consider the discharge disposition reasonable. Also, there is no evidence or peritonitis, sepsis, or toxicity. I have reevaluated this patient multiple times and no significant life threatening changes are noted. The patient and I have discussed the diagnosis and risks, and we agree with discharging home with close follow-up with the understanding that symptoms and presentations can change. We also discussed returning to the Emergency Department immediately if new or worsening symptoms occur. We have discussed the symptoms which are most concerning (e.g., changing or worsening pain, fever, numbness, weakness, cool or painful digits) that necessitate immediate return. - Vital Signs Vital signs: Temp Pulse Resp BP Pulse Ox 97.4 F 20 136/51 H 95 10/24/17 11:34 10/24/17 14:01 10/24/17 14:01 10/24/17 14:01 Critical Care Note - Critical Care Note Total time excluding time spent on procedures (mins): 33 Comments: 33 minutes of critical care time spent in direct contact evaluating and reevaluating the patient, treating symptoms, reviewing labs and studies and speaking with family and consultants excluding any procedures Discharge - Discharge Clinical Impression: Surgical arteriovenous fistula hemorrhage Qualifiers: Encounter type: initial encounter Qualified Code(s): T82.838A - Hemorrhage due to vascular prosthetic devices, implants and grafts, initial encounter Condition: Stable Disposition: HOME, SELF-CARE Additional Instructions: Please follow-up with your physician suture in 10 days return immediately if there is any sign of infection or continued bleeding Hold pressure if there is any bleeding noted Referrals: DEX POSADA, DO [Primary Care Provider] - Follow up as needed
[2017-10-24 14:07] VITALS: BP 136/51
--- NOTE | 2017-10-24 17:06 | Operative Report ---
Operative Report DATE OF SURGERY: 10/24/17 PREOPERATIVE DIAGNOSIS: Uncontrolled bleeding from left arm AV fistula status post hemodialysis POSTOPERATIVE DIAGNOSIS: Same OPERATION: Suture control of left arm AV fistula bleeding SURGEON: YELITZA DURAN ANESTHESIA: Other - None TISSUE REMOVED OR ALTERED: None COMPLICATIONS: None ESTIMATED BLOOD LOSS: 25 cc INTRAOPERATIVE FINDINGS: See below PROCEDURE: As the surgeon aviation electrical technician, I was summoned to the emergency department to assess this patient who would been brought from dialysis to the emergency department because of uncontrolled bleeding from her left arm AV fistula. She had a field tourniquet in position and lost an undisclosed amount of blood. Dr. Parsons call me directly so I came immediately to the emergency department Summary: The patient was in mild distress. There was blood on her gown left upper extremity. Dr. Dean was holding pressure over the left upper extremity medial aspect at the site of AV fistula bleeding. The tourniquet was elevated. We took the direct finger pressure off of the bleeding spot and I placed a [id number] 5-0 Prolene suture over the stick site which was the culprit bleeding site. The knot was secured, and the pocket was taken down uneventfully. There was no mechanical bleeding encountered. Patient was washed up and appropriate dressings applied. Patient remained hemodynamically stable during this time. She can follow-up with the dialysis center, or her physicians in [place].
== END 2017-10-24 14:00 | disposition home or self-care (01) ==
LOC: ER 10:32
DX: T82.838A Hemorrhage due to vascular prosthetic devices, implants and grafts, initial encounter (principal); Y71.8 Miscellaneous cardiovascular devices associated with adverse incidents, not elsewhere classified; Y92.129 Unspecified place in nursing home as the place of occurrence of the external cause; I12.0 Hypertensive chronic kidney disease with stage 5 chronic kidney disease or end stage renal disease; N18.6 End stage renal disease; Z99.2 Dependence on renal dialysis; Z88.1 Allergy status to other antibiotic agents; Z88.8 Allergy status to other drugs, medicaments and biological substances
CPT/HCPCS: 99285

== ENCOUNTER 2017-11-24 14:38 | Emergency (ER) | payer MEDICARE, BC ==
[2017-11-24 16:09] LABS: VENOUS BLOOD BASE EXCESS 0.8 mmol/L; VENOUS BLOOD HCO3 29.3 mmol/L (20-32); VENOUS BLOOD PH 7.25 (7.30-7.42)
[2017-11-24 16:13] LABS: VENOUS BLOOD PCO2 67.8 mmHg (35-63)
[2017-11-24 16:14] LABS: ALANINE AMINOTRANSFERASE 29 U/L (9-52); ALBUMIN 2.6 g/dL (3.5-5.0); ALKALINE PHOSPHATASE 183 U/L (38-126); ANION GAP 13 (5-19); ASPARTATE AMINO TRANSFERASE 26 U/L (14-36); BLOOD UREA NITROGEN 32 mg/dL (7-20); CARBON DIOXIDE 26 mmol/L (22-30); CHLORIDE 97 mmol/L (98-107); GLUCOSE 79 mg/dL (75-110); POTASSIUM 4.5 mmol/L (3.6-5.0); SODIUM 135.9 mmol/L (137-145); TOTAL PROTEIN 5.5 g/dL (6.3-8.2)
--- NOTE | 2017-11-24 16:17 | RADIOLOGY REPORT (SQ) ---
EXAM DESCRIPTION: CT HEAD WITHOUT COMPLETED DATE/TIME: 11/24/2017 4:05 pm REASON FOR STUDY: ams COMPARISON: None. TECHNIQUE: Axial images acquired through the brain without intravenous contrast. Images reviewed wi th bone, brain and subdural windows. Additional sagittal and coronal reconstructions were generated. Images stored on PACS. All CT scanners at this facility use dose modulation, iterative reconstruction, and/or weight based d osing when appropriate to reduce radiation dose to as low as reasonably achievable (ALARA). [facility]: Dose Right [facility]: CareDose [facility]: Dose Right [facility]: Teradose 4D [facility]: 360T RADIATION DOSE: CT Rad equipment meets quality standard of care and radiation dose reduction techniq ues were employed. CTDIvol: 53.2 mGy. DLP: 991 mGy-cm. mGy. LIMITATIONS: None. FINDINGS: VENTRICLES: Prominent. CEREBRUM: No masses. No hemorrhage. No midline shift. Areas of low density in the white matter mos t likely due to chronic micro-vascular ischemic change. No evidence for acute infarction. CEREBELLUM: No masses. No hemorrhage. No alteration of density. No evidence for acute infarction. EXTRAAXIAL SPACES: Mild age-related involutional change. No fluid collections. No masses. ORBITS AND GLOBE: No intra- or extraconal masses. Normal contour of globe without masses. CALVARIUM: No fracture. PARANASAL SINUSES: There is opacification of the left maxillary antra consistent with sinus disease. SOFT TISSUES: No mass or hematoma. OTHER: No other significant finding. IMPRESSION: MILD CHRONIC CHANGES OF ATROPHY AND MICROVASCULAR ISCHEMIA. NO ACUTE intracranial proce ss. Sinus disease as noted above. EVIDENCE OF ACUTE STROKE: No TECHNICAL DOCUMENTATION: JOB ID: [id number] Quality ID # [id number]: Final reports with documentation of one or more dose reduction techniques (e.g., Au tomated exposure control, adjustment of the mA and/or kV according to patient size, use of iterative reconstruction technique) 2010 [employer]- All Rights Reserved Reading location - IP/workstation name: [email or web address]
--- NOTE | 2017-11-24 16:18 | RADIOLOGY REPORT (SQ) ---
EXAM DESCRIPTION: CHEST SINGLE VIEW COMPLETED DATE/TIME: 11/24/2017 4:05 pm REASON FOR STUDY: ams COMPARISON: 10/14/2017 EXAM PARAMETERS: NUMBER OF VIEWS: One view. TECHNIQUE: Single frontal radiographic view of the chest acquired. RADIATION DOSE: NA LIMITATIONS: None. FINDINGS: LUNGS AND PLEURA: Increased density is identified in the lung bases consistent with small bilateral pleural effusions. I cannot exclude some underlying atelectasis or infiltrate in the lung bases. MEDIASTINUM AND HILAR STRUCTURES: No masses. Contour normal. HEART AND VASCULAR STRUCTURES: Cardiac silhouette remains enlarged. There is pulmonary vascular grisel estion. BONES: No acute findings. HARDWARE: Pool chamber transvenous pacemaker is unchanged in position. OTHER: No other significant finding. IMPRESSION: Congestive failure pattern as noted above. TECHNICAL DOCUMENTATION: JOB ID: [id number] [employer]- All Rights Reserved Reading location - IP/workstation name: [email or web address]
[2017-11-24 16:51] LABS: ABSOLUTE EOSINOPHILS # (AUTO) 0.1 10^3/uL (0.0-0.6); ABSOLUTE LYMPHOCYTES (AUTO) 0.7 10^3/uL (0.5-4.7); ABSOLUTE MONOCYTES (AUTO) 0.4 10^3/uL (0.1-1.4); ABSOLUTE NEUT (AUTO) 8.9 10^3/uL (1.7-8.2); BASOPHILS % (AUTO) 0.5 % (0-2); EOSINOPHILS % (AUTO) 0.5 % (0-6); HEMATOCRIT 36.7 % (36.0-47.0); HEMOGLOBIN 11.3 g/dL (12.0-15.5); LYMPHOCYTES % (AUTO) 6.5 % (13-45); MEAN CORPUSCULAR HEMOGLOBIN 29.4 pg (27.0-33.4); MEAN CORPUSCULAR HGB CONC 30.7 g/dL (32.0-36.0); MEAN CORPUSCULAR VOLUME 96 fl (80-97); MONOCYTES % (AUTO) 3.9 % (3-13); RED BLOOD COUNT 3.83 10^6/uL (3.72-5.28); RED CELL DISTRIBUTION WIDTH 21.3 % (11.5-14.0); SEGMENTED NEUTROPHILS % (AUTO) 88.6 % (42-78); TOTAL CELLS COUNTED % (AUTO) 100 %; WHITE BLOOD COUNT 10.1 10^3/uL (4.0-10.5)
[2017-11-24 16:52] LABS: PLATELET COUNT 88 10^3/uL (150-450)
[2017-11-24 17:00] LABS: AMORPHOUS SEDIMENT,URINE TRACE /HPF; APPEARANCE,URINE CLOUDY; BILIRUBIN,URINE NEGATIVE (NEGATIVE); COLOR,URINE AMBER; GLUCOSE, URINE NEGATIVE (NEGATIVE); KETONES,URINE NEGATIVE (NEGATIVE); LEUKOCYTE ESTERASE,URINE LARGE (NEGATIVE); NITRITE,URINE NEGATIVE (NEGATIVE); PROTEIN,URINE 100 mg/dL (NEGATIVE); URINE SPECIFIC GRAVITY 1.013; UROBILINOGEN,URINE NEGATIVE mg/dL (<2.0)
[2017-11-24] MEDS ORDERED: NORMAL SALINE 500 ML IV ONE (17:20)
[2017-11-24] MEDS ORDERED: AZTREONAM INJ 1 GM VIAL IV ONE (17:21)
[2017-11-24 18:42] LABS: INTERNATIONAL RATION (INR) 1.08; PROTHROMBIN TIME 14.5 SEC (11.4-15.4)
[2017-11-24 18:43] LABS: PARTIAL THROMBOPLASTIN TIME 45.8 SEC (23.5-35.8)
[2017-11-24] MEDS ORDERED: VANCOMYCIN HCL INJ 1000 MG VIAL IV ONE (19:19)
--- NOTE | 2017-11-24 21:52 | EKG REPORT ---
SEVERITY:- ABNORMAL ECG - VENTRICULAR-PACED RHYTHM : Confirmed by: Rodney Hartley 24-Nov-2017 21:51:59
--- NOTE | 2017-11-24 22:30 | ER Document Report ---
ED General - General Chief Complaint: Altered Mental Status Stated Complaint: ALTERED MENTAL STATUS Time Seen by Provider: 11/24/17 14:43 TRAVEL OUTSIDE OF THE [place] IN LAST 30 DAYS: No - HPI Patient complains to provider of: Altered mental state Notes: Patient is a end-stage renal dialysis patient coming in for altered mental status. Apparently patient has had declining mental status for 1 week according to EMS patient was at dialysis which she did not obtain today because of hypotension systolics in 80s. Here blood pressure systolic greater than 100. Patient looks to be somewhat however will open her eyes and answer yes and no questions. Patient is moving all 4 extremities. Patient denies any pain in her chest or in her abdomen. Denies any nausea or vomiting. Otherwise much of the HPI is limited due to the change in mental status. - Related Data Allergies/Adverse Reactions: benazepril [Benazepril] Allergy (Verified 11/24/17 16:35) cephalexin monohydrate [From Keflex] Allergy (Verified 11/24/17 16:35) ciprofloxacin [From Cipro] Allergy (Verified 11/24/17 16:35) ciprofloxacin HCl [From Cipro] Allergy (Verified 11/24/17 16:35) methyldopa [From Aldomet] Allergy (Verified 11/24/17 16:35) Past Medical History - Social History Smoking Status: Unknown if Ever Smoked Family History: Reviewed & Not Pertinent Patient has suicidal ideation: No Patient has homicidal ideation: No - Past Medical History Cardiac Medical History: Reports: Hx Congestive Heart Failure, Hx Hypertension Renal/ Medical History: Reports: Hx End Stage Renal Disease. Denies: Hx Peritoneal Dialysis Musculoskeltal Medical History: Reports Hx Arthritis Past Surgical History: Reports: Hx Appendectomy, Hx Cardiac Surgery - pacemaker , Hx Cholecystectomy, Hx Hysterectomy, Hx Orthopedic Surgery, Hx Urinary Tract Surgery, Hx Vascular Surgery - AV graft of L upper arm - Immunizations Hx Pneumococcal Vaccination: 08/22/14 Review of Systems - Review of Systems -: Yes ROS unobtainable due to patient's medical condition - Change in mental state Physical Exam - Vital signs Vitals: Pulse BP 79 117/58 L 11/24/17 14:41 11/24/17 14:41 Notes: Hypothermic - General General appearance: Alert, Other - Somnolent arouses to voice - HEENT Head: Normocephalic, Atraumatic Eyes: Normal Pupils: PERRL - Respiratory Respiratory status: No respiratory distress Chest status: Nontender Breath sounds: Normal Chest palpation: Normal - Cardiovascular Rhythm: Regular Heart sounds: Normal auscultation Murmur: No - Abdominal Inspection: Normal Distension: No distension Bowel sounds: Normal Tenderness: Nontender Organomegaly: No organomegaly - Back Back: Normal, Nontender - Extremities General upper extremity: Normal inspection, Nontender, Normal color, Normal temperature, Other - Patient with left upper extremity AV fistula with palpable thrill General lower extremity: Normal inspection, Nontender, Normal color, Normal temperature - Neurological Neuro grossly intact: Yes Cognition: Normal Orientation: AAOx4 [place] Coma Scale Eye Opening: To Voice [place] Coma Scale Verbal: Confused [place] Coma Scale Motor: Obeys Commands [place] Coma Scale Total: 13 Speech: Normal Sensory: Normal - Skin Skin Temperature: Cool Skin Moisture: Dry Skin Color: Normal Course - Re-evaluation Re-evalutation: 11/24/17 22:30 Patient was unable to provide much of any information. Staff here in ER states that recently saw the patient for a bleeding AV fistula patient that time was very spry answering questions alert. Patient is very somnolent today and confused. Head CT and CT does not show any acute pathology. Chest x-ray shows fluid overload. Patient's lab work does not show any signs of leukocytosis negative lactic acid however patient is acidotic with a PCO2 and the upper 60s. Because of this patient was placed on BiPAP for hypoxia patient required excessive FiO2. Patient was hypothermic upon arrival in place and a bear hugger along with warm fluids. A straight cath urine did reveal cloudy thick urine which does show signs of possible infection however family at bedside is unaware if the patient makes urine. Patient does not have a fever or leukocytosis however we will cover the patient with antibiotics patient is allergic to cephalexin ciprofloxacin. Started patient on vancomycin and aztreonam. Mental status has Improved after being on BiPAP. Because of lack of dialysis patient will be transferred to [facility]. Discussed with Dr. Kothari agreed to set the patient in transfer. Currently waiting for a bed - Vital Signs Vital signs: Temp Pulse Resp BP Pulse Ox 98.8 F 79 22 H 130/70 H 95 11/24/17 21:01 11/24/17 14:41 11/24/17 21:01 11/24/17 21:01 11/24/17 21:01 - Laboratory Result Diagrams: 11/24/17 15:31 11/24/17 15:31 Laboratory results interpreted by me: 11/24/17 11/24/17 11/24/17 15:06 15:31 15:31 Hgb 11.3 L MCHC 30.7 L RDW 21.3 H Plt Count 88 L Seg Neutrophils % 88.6 H Lymphocytes % 6.5 L Absolute Neutrophils 8.9 H APTT VBG pH VBG pCO2 Sodium 135.9 L Chloride 97 L BUN 32 H Creatinine 3.13 H Est GFR ( Amer) 17 L Est GFR (Non-Af Amer) 14 L Direct Bilirubin 1.0 H Alkaline Phosphatase 183 H Total Protein 5.5 L Albumin 2.6 L Urine Protein 100 H Urine Blood LARGE H Ur Leukocyte Esterase LARGE H 11/24/17 11/24/17 15:46 18:05 Hgb MCHC RDW Plt Count Seg Neutrophils % Lymphocytes % Absolute Neutrophils APTT 45.8 H VBG pH 7.25 L VBG pCO2 67.8 H* Sodium Chloride BUN Creatinine Est GFR ( Amer) Est GFR (Non-Af Amer) Direct Bilirubin Alkaline Phosphatase Total Protein Albumin Urine Protein Urine Blood Ur Leukocyte Esterase Critical Care Note - Critical Care Note Total time excluding time spent on procedures (mins): 35 Comments: Multiple evaluation patient with hypercapnia altered mental status requiring BiPAP Discharge - Discharge Clinical Impression: Hypercapnia, Encephalopathy, End stage renal disease CHF exacerbation Qualifiers: Heart failure type: unspecified Qualified Code(s): I50.9 - Heart failure, unspecified Urinary tract infection Qualifiers: Urinary tract infection type: site unspecified Hematuria presence: without hematuria Qualified Code(s): N39.0 - Urinary tract infection, site not specified Condition: Fair Disposition: Critical access hospital Referrals: DEX POSADA DO [Primary Care Provider] - Follow up as needed
[2017-11-25 00:31] LABS: ARTERIAL BLOOD BASE EXCESS 2.4 mmol/L; ARTERIAL BLOOD H2CO3 1.66 mmol/L (1.05-1.35); ARTERIAL BLOOD HCO3 29.1 mmol/L (20-26); ARTERIAL BLOOD O2 SATURATION 67.1 % (94-98); ARTERIAL BLOOD PCO2 55.1 mmHg (35-45); ARTERIAL BLOOD PH 7.34 (7.35-7.45); ARTERIAL BLOOD TOTAL CO2 30.8 mmol/L (21-25)
[2017-11-25 00:37] LABS: ARTERIAL BLOOD PO2 37.6 mmHg (80-100)
[2017-11-25 00:38] LABS: ARTERIAL BLOOD FIO2 30%
[2017-11-25 01:49] VITALS: BP 137/48
== END 2017-11-25 01:30 | disposition short-term general hospital (02) ==
LOC: ER 14:38
DX: I13.2 Hypertensive heart and chronic kidney disease with heart failure and with stage 5 chronic kidney disease, or end stage renal disease (principal); I50.9 Heart failure, unspecified; N18.6 End stage renal disease; Z99.2 Dependence on renal dialysis; N39.0 Urinary tract infection, site not specified; G93.40 Encephalopathy, unspecified; R40.0 Somnolence; T68.XXXA Hypothermia, initial encounter; X58.XXXA Exposure to other specified factors, initial encounter; E87.2 Acidosis; R09.02 Hypoxemia; R41.0 Disorientation, unspecified; Z88.8 Allergy status to other drugs, medicaments and biological substances; Z88.1 Allergy status to other antibiotic agents; R06.89 Other abnormalities of breathing
CPT/HCPCS: 93005; 99291; 51701; 96365; 96367; 36415; 87040; 87086; 82962; 82803 ×2; 83690; 83735; 85025; 85610; 85730; 80053; 81001; 84484; 83605; 71045; 70450; 93010; 94660 ×2; J7040; J3370; J3490